=== PATIENT | male | born 1990 | race Caucasian/White ===

== ENCOUNTER 2018-10-11 10:24 | Emergency (ER) | payer OTHER ==
[~2018-10-11] VITALS: Ht 180.3 cm; Wt 108.6 kg
[2018-10-11] MEDS ORDERED: KEFL250C11 PO (10:33)
[2018-10-11] MEDS ORDERED: GI COCKTAIL 50ML BTL(HYOSCYAMINE/MAALOX/LIDOCAINE VISCOUS)(1:3:1) PO ONE (11:00)
[2018-10-11] MEDS ORDERED: SUCRALFATE SUSP 1GM/10ML UD PO ONE (11:30)
[2018-10-11] MEDS ORDERED: PEPC1TAB5 PO (12:06)
[2018-10-11] MEDS ORDERED: SUCR1SS PO (12:07)
[2018-10-11 12:16] VITALS: BP 106/73
--- NOTE | 2018-10-11 13:35 | REP ---
REASON: Chest pain. COMPARISON: None. FINDINGS: The superior mediastinal structures are midline. The cardiac silhouette is unremarkable in size, shape, and position. The diaphragmatic surfaces of the lungs are regular, and the costophrenic angles are clear. The pulmonary larry are clear. The imaged osseous structures are intact. IMPRESSION: There is no acute cardiopulmonary disease. Electronically Signed by Deniz Bach DO 10/11/2018 03:44 P
--- NOTE | 2018-10-12 06:06 | ECGEPIP ---
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
== END 2018-10-11 12:30 | disposition home or self-care (01) ==
LOC: EDBD 10:24 → M ED 10:24
DX: K21.9 Gastro-esophageal reflux disease without esophagitis (principal); Z82.49 Family history of ischemic heart disease and other diseases of the circulatory system; Z79.899 Other long term (current) drug therapy